=== PATIENT | female | born 1955 | race African-American/Black ===

== ENCOUNTER 2018-11-21 12:34 | Inpatient (IN) | payer MEDICARE, MEDICAID ==
[~2018-11-21] VITALS: Ht 160 cm; Wt 58.1 kg
[~2018-11-21 12:34] MED LIST: ASPI-1160; LOSA50TA3 PO; PRED5TAB48
[2018-11-21] MEDS ORDERED: SODIUM CHLORIDE 0.9% 1000ML BAG (SEPSIS BOLUS) IV ONE (13:15)
[2018-11-21 14:32] LABS: BASOPHILS % 0.6 % (0.0-2.0); EOSINOPHILS % 0.8 % (0.0-5.0); HEMATOCRIT. 43.9 % (36.0-48.0); HEMOGLOBIN. 14.9 g/dL (12.0-16.0); LYMPHOCYTES % 33.1 % (20.0-50.0); MEAN CORPUSCULAR HEMOGLOBIN 32.5 pg (28.0-32.0); MEAN CORPUSCULAR VOLUME 95.8 fL (81.0-99.0); MONOCYTES % 5.8 % (2.0-8.0); NEUTROPHILS % 59.7 % (40.0-76.0); PLATELET 191 x1000/uL (130-400); RED BLOOD CELL COUNT 4.58 mill/uL (4.2-5.4); RED CELL DISTRIBUTION WIDTH 14.3 % (11.6-14.6)
[2018-11-21 14:38] LABS: CHLORIDE 106 mEq/L (98-107)
[2018-11-21 14:40] LABS: PARTIAL THROMBOPLASTIN TIME 24.7 sec (23.4-31.0); PROTHROMBIN TIME 10.1 sec (9.1-11.1)
[2018-11-21] MEDS ORDERED: MORPHINE SULFATE 4 MG/ML CPJ (NOT FOR IM USE) IV STA (15:25)
[2018-11-21] MEDS ORDERED: ONDANSETRON HCL 4MG/2ML INJ IV STA (15:25)
[2018-11-21] MEDS ORDERED: CLOPIDOGREL 75MG TABLET PO ONE (15:30)
[2018-11-21] MEDS ORDERED: DIPHENHYDRAMINE 50MG/ML VIAL IV ONE (15:30)
[2018-11-21] MEDS ORDERED: MORPHINE SULFATE 10 MG/ML CPJ IV STA (16:06)
[2018-11-21] MEDS ORDERED: LEVOFLOXACIN 750MG PREMIX 150 ML IV ONE (16:45)
[2018-11-21] MEDS ORDERED: IOHEXOL-350 100 ML BOTTLE ONE (17:44)
[2018-11-21] MEDS ORDERED: IPRATROPIUM/ALBUTEROL 0.5-3(2.5)MG/3ML NEB INH PRN (19:15)
[2018-11-21] MEDS ORDERED: DOCUSATE SODIUM 100MG CAPSULE PO PRN (19:15)
[2018-11-21] MEDS ORDERED: GUAIFENESIN 200MG/10ML SUGAR FREE UDC PO PRN (19:15)
[2018-11-21] MEDS ORDERED: MAGNESIUM/ALUMINUM HYDROXIDE/SIMETHICONE 30ML UDC PO PRN (19:15)
[2018-11-21] MEDS ORDERED: ONDANSETRON HCL 4MG/2ML INJ IV PRN (19:15)
[2018-11-21] MEDS ORDERED: ACETAMINOPHEN 325MG TABLET PO PRN ×2 (19:15→21:15)
[2018-11-21 19:54] LABS: CHLORIDE 111 mEq/L (98-107)
[2018-11-21 21:40] VITALS: BP 152/102
[2018-11-21 21:48] LABS: CLARITY URINE CLEAR (CLEAR); COLOR URINE YELLOW (YELLOW); KETONES URINE NEGATIVE (NEGATIVE); LEUKOCYTE ESTERASE URINE NEGATIVE (NEGATIVE); NITRITE URINE NEGATIVE (NEGATIVE); OCCULT BLOOD URINE 1+ (NEGATIVE); PH URINE 6.5 (4.5-8.0); PROTEIN URINE NEGATIVE (NEGATIVE); SPECIFIC GRAVITY URINE 1.012 (1.005-1.030); UROBILINOGEN URINE 0.2 E.U./dL (0.2-1.0)
[2018-11-21 22:01] LABS: *AMPHETAMINES SCREEN URINE NEGATIVE (NEGATIVE); *BARBITURATES SCREEN URINE NEGATIVE (NEGATIVE); *BENZODIAZEPINES SCREEN URINE NEGATIVE (NEGATIVE); *COCAINE SCREEN URINE NEGATIVE (NEGATIVE); CANNABINOID URINE SCREEN PRESUMTIVE POSITIVE (NEGATIVE); METHADONE URINE SCREEN NEGATIVE (NEGATIVE); OPIATES URINE SCREEN NEGATIVE (NEGATIVE); PHENCYCLIDINE URINE SCREEN NEGATIVE (NEGATIVE)
[2018-11-21] MEDS ORDERED: B50 MT (22:42)
[2018-11-21] MEDS ORDERED: LOSA100T14 PO (22:46)
[2018-11-21] MEDS: AZITHROMYCIN 500 MG TABLET PO SCH (23:37)
[2018-11-21] MEDS: DIPHENHYDRAMINE 25MG CAPSULE PO PRN (23:37)
[2018-11-21] MEDS: MORPHINE SULFATE 10 MG/ML CPJ IV PRN (23:37)
[2018-11-21] MEDS: ENOXAPARIN 40MG/0.4ML SYR SUBCUT SCH (23:38)
[2018-11-22] VITALS: BP 134/78
[2018-11-22 00:28] LABS: CREATINE KINASE 144 IU/L (26-192)
[2018-11-22 00:30] LABS: CREATINE KINASE MB FRACTION < 1.0 ng/mL (0.5-3.6)
[2018-11-22 04:00] VITALS: BP 160/86
[2018-11-22 07:17] LABS: BASOPHILS % 0.3 % (0.0-2.0); HEMATOCRIT. 36.6 % (36.0-48.0); HEMOGLOBIN. 12.5 g/dL (12.0-16.0); LYMPHOCYTES % 43.6 % (20.0-50.0); MEAN CORPUSCULAR HEMOGLOBIN 32.5 pg (28.0-32.0); MEAN CORPUSCULAR VOLUME 95.2 fL (81.0-99.0); MEAN PLATELET VOLUME 9.1 fl (7.4-10.4); MONOCYTES % 12.4 % (2.0-8.0); NEUTROPHILS % 41.7 % (40.0-76.0); PLATELET 174 x1000/uL (130-400); RED BLOOD CELL COUNT 3.84 mill/uL (4.2-5.4); RED CELL DISTRIBUTION WIDTH 14.6 % (11.6-14.6)
[2018-11-22 07:59] LABS: LDL CHOLESTEROL 16 mg/dL (5-100)
[2018-11-22 08:00] VITALS: BP 168/103
[2018-11-22 08:00] LABS: CREATINE KINASE 136 IU/L (26-192); HDL CHOLESTEROL 94 mg/dL (40-59)
[2018-11-22 08:02] LABS: CREATINE KINASE MB FRACTION < 1.0 ng/mL (0.5-3.6)
[2018-11-22] MEDS: CLONIDINE 0.1MG TABLET PO PRN ×2 (08:50→16:48)
[2018-11-22] MEDS ORDERED: INFLUENZA VIRUS VACCINE(AFLURIA) 0.5ML SYR IM ONE (12:00)
[2018-11-22] MEDS ORDERED: PNEUMOCOCCAL 23-VAL P-SAC VAC 0.5 ML IM ONE (12:00)
[2018-11-22 12:09] VITALS: BP 148/81
[2018-11-22] MEDS: AMLODIPINE 5MG TABLET PO SCH ×2 (12:34→21:34)
[2018-11-22] MEDS: ASPIRIN 81MG TABLET PO SCH (12:34)
[2018-11-22] MEDS ORDERED: HYDROCODONE/ACETAMINOPHEN 5/325MG TABLET PO PRN (14:15)
[2018-11-22] MEDS: MAGNESIUM OXIDE 400MG TABLET PO SCH (15:20)
[2018-11-22] MEDS: MORPHINE SULFATE 10 MG/ML CPJ IV PRN ×2 (15:28→21:44)
[2018-11-22 16:00] VITALS: BP 165/94
[2018-11-22 20:00] VITALS: BP 148/88
[2018-11-22] MEDS: DIPHENHYDRAMINE 25MG CAPSULE PO PRN (21:34)
[2018-11-22] MEDS: ENOXAPARIN 40MG/0.4ML SYR SUBCUT SCH (21:34)
[2018-11-22] MEDS: BUDESONIDE 0.5MG/2ML NEB HHN SCH (21:40)
[2018-11-22] MEDS ORDERED: CEFTRIAXONE 1 G PREMIX 50 ML IV SCH ×2 (23:00)
[2018-11-22] MEDS: AZITHROMYCIN 500 MG TABLET PO SCH (23:41)
[2018-11-23] VITALS: BP 144/72
[2018-11-23 04:00] VITALS: BP 152/74
[2018-11-23 05:59] LABS: BASOPHILS % 0.9 % (0.0-2.0); EOSINOPHILS % 1.5 % (0.0-5.0); HEMOGLOBIN. 12.7 g/dL (12.0-16.0); LYMPHOCYTES % 21.7 % (20.0-50.0); MEAN CORPUSCULAR HEMOGLOBIN 32.5 pg (28.0-32.0); MEAN CORPUSCULAR VOLUME 94.5 fL (81.0-99.0); MEAN PLATELET VOLUME 8.7 fl (7.4-10.4); MONOCYTES % 9.1 % (2.0-8.0); NEUTROPHILS % 66.8 % (40.0-76.0); PLATELET 166 x1000/uL (130-400); RED BLOOD CELL COUNT 3.92 mill/uL (4.2-5.4); RED CELL DISTRIBUTION WIDTH 14.5 % (11.6-14.6)
[2018-11-23 06:29] LABS: CHLORIDE 108 mEq/L (98-107)
[2018-11-23 08:00] VITALS: BP 158/95
[2018-11-23] MEDS: BUDESONIDE 0.5MG/2ML NEB HHN SCH (08:15)
[2018-11-23] MEDS: ASPIRIN 81MG TABLET PO SCH (09:39)
[2018-11-23] MEDS: AMLODIPINE 5MG TABLET PO SCH (09:39)
[2018-11-23] MEDS: MAGNESIUM OXIDE 400MG TABLET PO SCH (09:39)
[2018-11-23] MEDS: MORPHINE SULFATE 10 MG/ML CPJ IV PRN ×2 (10:24→19:10)
[2018-11-23] MEDS ORDERED: LOSARTAN POTASSIUM 50 MG TABLET PO SCH (10:30)
[2018-11-23] MEDS ORDERED: ASPIRIN 81MG TABLET PO SCH (10:30)
[2018-11-23 12:00] VITALS: BP 146/91
[2018-11-23 16:00] VITALS: BP 144/75
[2018-11-23] MEDS ORDERED: AZIT500T5 PO (17:02)
[2018-11-23] MEDS ORDERED: ATOR10TA PO (17:02)
[2018-11-23] MEDS ORDERED: LOSA50TA3 PO (17:02)
[2018-11-23] MEDS ORDERED: AMLO5TAB88 PO (17:02)
[2018-11-23 19:29] VITALS: BP 146/86
[2018-11-23] MEDS ORDERED: ATORVASTATIN CALCIUM 10MG TABLET PO SCH (21:00)
== END 2018-11-23 20:22 | disposition home or self-care (01) | DRG 206 ==
LOC: ER 12:34 → EDBEDREQ 16:00 → EDBEDREQTM 16:00 → EDBEDREQSVC 16:00 → 8WST 17:37 → EDBEDREQTM 17:40 → EDBEDREQ 17:40 → ENRESERV 19:51
PROVIDERS: ADMIT Internal Medicine; ATTEND Internal Medicine
DX: M94.0 Chondrocostal junction syndrome [Tietze] (principal); J06.9 Acute upper respiratory infection, unspecified; E83.42 Hypomagnesemia; J44.9 Chronic obstructive pulmonary disease, unspecified; F12.90 Cannabis use, unspecified, uncomplicated; F17.210 Nicotine dependence, cigarettes, uncomplicated; I10 Essential (primary) hypertension; G43.909 Migraine, unspecified, not intractable, without status migrainosus; I27.20 Pulmonary hypertension, unspecified; Z87.442 Personal history of urinary calculi; Z90.710 Acquired absence of both cervix and uterus; Z88.8 Allergy status to other drugs, medicaments and biological substances; Z91.048 Other nonmedicinal substance allergy status; Z88.6 Allergy status to analgesic agent; Z79.899 Other long term (current) drug therapy
CPT/HCPCS: 36415; 71045; 71275; 80048; 80061; 80305; 82550; 82553; 83605; 83735; 83880; 84145; 84443; 84484; 85379; 86038; 87070; 87430; 87804; 90686; 90732; 93005; 93306; 93970; 94640; 96361; 96365; 96375; 99285; J0696; J1200; J1650; J1956; J2270; J2405; J7030; J7040; J7050; J7620; J7626; Q0163; Q9967

== ENCOUNTER 2022-08-26 13:34 | Emergency (ER) | payer MEDICAID, MEDICARE, OTHER ==
[~2022-08-26] VITALS: Ht 162.6 cm; Wt 75.0 kg
[~2022-08-26 13:34] MED LIST changes: +AMLO5TAB88 PO; +ATOR10TA PO; +B50 MT; -PRED5TAB48
[2022-08-26 13:58] VITALS: BP 141/96
[2022-08-26] MEDS ORDERED: GABA100C MT (16:03)
== END 2022-08-26 17:14 | disposition home or self-care (01) ==
LOC: ER 13:34
DX: G62.9 Polyneuropathy, unspecified (principal); G43.909 Migraine, unspecified, not intractable, without status migrainosus; I10 Essential (primary) hypertension; F12.10 Cannabis abuse, uncomplicated; Z86.73 Personal history of transient ischemic attack (TIA), and cerebral infarction without residual deficits; Z90.710 Acquired absence of both cervix and uterus; Z87.442 Personal history of urinary calculi; Z79.82 Long term (current) use of aspirin; Z88.8 Allergy status to other drugs, medicaments and biological substances; Z91.048 Other nonmedicinal substance allergy status
CPT/HCPCS: 82962; 99281